=== PATIENT | male | born 1965 | race Caucasian/White ===

== ENCOUNTER → 2017-07-29 | Outpatient (CLI) | payer SELFPAY ==
--- NOTE | 2017-07-31 13:32 | RAD ---
Three views of the right hand and right wrist. INDICATION: Hand and wrist pain. COMPARISON: None. FINDINGS: No acute fracture, dislocation or suspicious osseous lesions are identified. There are hypertrophic degenerative changes with joint space narrowing and osteophytosis primarily involving the CMC, ulnocarpal and distal radioulnar joint. Bone mineralization appears within normal limits. Soft tissues have a normal radiographic appearance. 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 Electronically signed by: Sony Flores MD 07/31/2017 1:31 PM [facility] Workstation: [id number]
== END ==
LOC: RAD 08:21
PROVIDERS: ATTEND Orthopaedic Surgery
DX: M79.641 Pain in right hand (principal); M25.531 Pain in right wrist

== ENCOUNTER → 2020-08-27 | Outpatient (CLI) | payer OTHER ==
--- NOTE | 2020-08-27 11:49 | MRI ---
Study: MRI of the Left Shoulder. Indication: SHOULDER STRAIN Technique: Multiplanar, multi sequence MRI of the left shoulder was obtained without intravenous contrast. Comparison: None. Findings: Severe hypertrophic AC joint osteoarthritis. Type II acromion. Full-thickness, fullwidth supraspinatus tendon tear with involvement of the anterior half infraspinatus tendon. Torn tendon fibers retracted to the glenohumeral joint line. High-grade articular tearing and attenuation throughout the subscapularis tendon. Long head biceps tendon torn and distally retracted. Mild to moderate atrophy and grade 2 fatty infiltration rotator cuff musculature. Circumferential labral truncation/degeneration. Mild glenohumeral joint osteoarthritis with small joint effusion. No acute fracture. Impression: Retracted full-thickness, fullwidth supraspinatus tendon tearing with involvement of the anterior half infraspinatus tendon. High-grade articular tearing of subscapularis tendon. Mild to moderate atrophy and grade 2 fatty infiltration rotator cuff musculature. Long head biceps tendon torn and distally retracted. Circumferential labral truncation/degeneration. Mild glenohumeral joint osteoarthritis with small joint effusion. Severe hypertrophic AC joint osteoarthritis. Electronically signed by: Gibson Rocha MD 08/27/2020 11:47 AM [facility]
== END ==
LOC: MRI 08:15
PROVIDERS: ATTEND Preventive Medicine Occupational Medicine
DX: M19.012 Primary osteoarthritis, left shoulder (principal); M25.412 Effusion, left shoulder; M75.102 Unspecified rotator cuff tear or rupture of left shoulder, not specified as traumatic; S43.432A Superior glenoid labrum lesion of left shoulder, initial encounter; M62.512 Muscle wasting and atrophy, not elsewhere classified, left shoulder; S46.112A Strain of muscle, fascia and tendon of long head of biceps, left arm, initial encounter